=== PATIENT | female | born 1980 | race Caucasian/White ===

== ENCOUNTER 2017-02-05 20:39 | Emergency (ER) | payer MEDICAID ==
[~2017-02-05] VITALS: Ht 162.6 cm; Wt 88.0 kg
[~2017-02-05 20:39] MED LIST: DOCU-144 PO; IBUP800T25 PO; PNV1TABL43 PO
[2017-02-05 20:44] VITALS: Ht 162.6 cm; Wt 88.0 kg
[2017-02-05] MEDS ORDERED: SOD CHLORIDE 0.9% 500 ML IV STA (21:27)
[2017-02-05] MEDS ORDERED: ASPIRIN 325 MG TAB PO STA (21:27)
[2017-02-05] MEDS ORDERED: LABETALOL HCL 20MG INJ IV ONE (21:30)
--- NOTE | 2017-02-05 22:22 | RADRPT ---
PROCEDURE: XR Chest AP portable CLINICAL INDICATION: Chest pain TECHNIQUE: An AP portable radiograph of the chest was submitted. COMPARISON: None. FINDINGS: Support Hardware: None Cardiovascular: Although exaggerated by overly lordotic projection, the heart appears mildly enlarge d and the pulmonary vasculature is equivocal for pulmonary venous obstruction. Lung Pavon: The lung pavon appear clear with no nodule, alveolar infiltrate, or interstitial promi nence evident. Pleural Spaces: No pneumothorax or pleural effusion is identified. Osseous Structures: The osseous structures appear intact. Soft Tissues: The soft tissues appear generous. IMPRESSION: 1. Mild cardiomegaly exaggerated by over the lordotic projection. The pulmonary vasculature is equi vocal for point venous obstruction. 2. Otherwise, unremarkable portable chest. Physician Ry Date Time Electronically viewed and signed by Physician Ry on 02/05/2017 22:22 /
[2017-02-05] MEDS ORDERED: NORG1TAB81 PO (22:36)
[2017-02-06] MEDS ORDERED: AMLO-147 PO (01:21)
--- NOTE | 2017-02-06 01:27 | ERD ---
ER Documentation Chief Complaint Chief Complaint chest pain x 2 days, htn w/ eye pain today HPI This 28-year-old female presents with 2 days of substernal nonradiating chest pain described as a sharp pain. Also had some blurred vision bilaterally today. This never been diagnosed with hypertension but is very hypertensive in triage. She does not take any medications. Any history of cardiac issues. ROS All systems reviewed and are negative except as per history of present illness. Medications Home Meds Active Scripts Amlodipine Besylate* (Amlodipine Besylate*) 10 Mg Tablet, 10 MG PO DAILY, #30 TAB Prov:MAGDI KEARNEY DO 02/06/17 Reported Medications Norgestimate-Ethinyl Estradiol (Norg-Ee 0.18-0.215-0.25/0.025) 1 Each Tablet, 1 EACH PO DAILY, TAB 02/05/17 Discontinued Reported Medications Docusate Sodium* (Colace*) 100 Mg Capsule, 100 MG PO BID, #30 CAP 08/11/14 Ibuprofen* (Motrin*) 800 Mg Tab, 800 MG PO Q6 Y for PAIN, #30 TAB 08/11/14 Vit/Fe Fumarate/Fa* ( Vitamin Tablet*) 1 Tab Tablet, 1 TAB PO DAILY, TAB 08/09/14 Allergies Allergies: Coded Allergies: Penicillins (Verified Allergy, Mild, 02/05/17) PMhx/Soc History of Surgery: No Anesthesia Reaction: No Hx Neurological Disorder: No Hx Respiratory Disorders: No Hx Cardiac Disorders: Yes (HTN) Hx Psychiatric Problems: No Hx Miscellaneous Medical Probl: Yes (DM) Hx Alcohol Use: No Hx Substance Use: No Hx Tobacco Use: No Smoking Status: Never smoker Physical Exam Vitals Vital Signs Date Time Temp Pulse Resp B/P Pulse Ox O2 Delivery O2 Flow Rate FiO2 02/05/17 23:15 80 20 169/96 99 Room Air 02/05/17 20:44 98.3 80 20 209/98 96 Physical Exam Const: [] Mild distress Head: Atraumatic Eyes: Normal Conjunctiva, ophthalmoscope exam within normal limits ENT: Normal External Ears, Nose and Mouth. Neck: Full range of motion..~ No meningismus. Resp: Clear to auscultation bilaterally Cardio: Regular rate and rhythm, no murmurs Abd: Soft, non tender, non distended. Normal bowel sounds Skin: No petechiae or rashes Ext: No cyanosis, or edema Neur: Awake and alert oriented 3, no focal deficit Psych: Normal Mood and Affect Result Diagram: 02/05/17213902/05/172139 Results 24 hrs Laboratory Tests Test 02/05/17 21:17 02/05/17 21:24 02/05/17 21:40 Bedside Urine pH (LAB) 7.0 Bedside Urine Protein (LAB) Trace Bedside Urine Glucose (UA) Negative Bedside Urine Ketones (LAB) Trace Bedside Urine Blood Negative Bedside Urine Nitrite (LAB) Negative Bedside Urine Leukocyte Esterase (L Negative Bedside Glucose 100mg/dL White Blood Count 12.910^3/ul Red Blood Count 4.2910^6/ul Hemoglobin 12.4g/dl Hematocrit 37.4% Mean Corpuscular Volume 87.2fl Mean Corpuscular Hemoglobin 28.9pg Mean Corpuscular Hemoglobin Concent 33.2g/dl Red Cell Distribution Width 11.9% Platelet Count 22313^3/UL Mean Platelet Volume 9.7fl Neutrophils % 70.9% Lymphocytes % 23.3% Monocytes % 4.7% Eosinophils % 0.5% Basophils % 0.3% Nucleated Red Blood Cells % 0.0/100WBC Neutrophils # 9.110^3/ul Lymphocytes # 3.010^3/ul Monocytes # 0.610^3/ul Eosinophils # 0.110^3/ul Basophils # 0.010^3/ul Nucleated Red Blood Cells # 0.010^3/ul Sodium Level 142mmol/L Potassium Level 3.5mmol/L Chloride Level 103mmol/L Carbon Dioxide Level 28mmol/L Anion Gap 15 Blood Urea Nitrogen 10mg/dl Creatinine 0.68mg/dl Glucose Level 105mg/dl Calcium Level 9.0mg/dl Troponin I < 0.012ng/ml B-Type Natriuretic Peptide 51PG/ML Current Medications Medications (Trade) Dose Ordered Sig/Reza Route PRN Reason Start Time Stop Time Status Last Admin Dose Admin Sodium Chloride (NS) 500 ml @ 500 mls/hr Q1H STAT IV 02/05/17 21:27 02/05/17 22:26 DC 02/05/17 21:40 Aspirin (Aspirin) 325 mg ONCE STAT PO 02/05/17 21:27 02/05/17 21:30 DC 02/05/17 21:40 Labetalol HCl (Labetalol) 20 mg ONCE ONCE IV 02/05/17 21:30 02/05/17 21:31 DC 02/05/17 21:40 Procedures/MDM Hypertensive urgency with chest pain and blurred vision. Previously undiagnosed hypertension. She was given labetalol 20 mg which greatly reduce her blood pressure, resolved her headache completely or blurred vision. She is given aspirin. She also given normal saline. No signs of cardiac dysfunction. Also no signs of damage from long-standing hypertension such as renal dysfunction or cardiac dysfunction. I have low suspicion for subarachnoid hemorrhages patient's symptoms are resolved and she had no other neurological deficits. She is symptomatic will be discharged home. Primary care follow-up on Wednesday and I am discharging her with amlodipine tablets to prevent hypertension. Recommend an outpatient echocardiogram to patient and family. EKG interpretation: Normal sinus rhythm rate of 77, normal axis, no ST or T- wave changes concerning for acute ischemia, normal intervals. Normal EKG Rate monitor interpretation: Normal sinus rhythm arrhythmia Chest x-ray rotation: I see no acute process. I see no infiltrates, no palmar edema, pneumothorax, no fractures. Radiologist mentions a possibly pulmonary venous obstruction the patient has completely resolved symptoms. Care time 35 minutes: This includes treatment of hypertensive urgency with unstable vital signs using vasoactive medication labetalol, careful fluid administration, multiple visits patient's bedside to assess cardio dynamic and neuro status, review of chart, discussion with patient, this does not include billable procedures. Departure Diagnosis: Primary Impression: Blurred vision, bilateral Additional Impressions: Accelerated hypertension Chest pain Condition: Stable Patient Instructions: Blurred Vision, Chest Pain, Uncertain Cause, Hypertension , New (Begin Treatment) Referrals: [facility] YOU HAVE RECEIVED A MEDICAL SCREENING EXAM AND THE RESULTS INDICATE THAT YOU DO NOT HAVE A CONDITION THAT REQUIRES URGENT TREATMENT IN THE EMERGENCY DEPARTMENT. FURTHER EVALUATION AND TREATMENT OF YOUR CONDITION CAN WAIT UNTIL YOU ARE SEEN IN YOUR DOCTORS OFFICE WITHIN THE NEXT 1-2 DAYS. IT IS YOUR RESPONSIBILITY TO MAKE AN APPOINTMENT FOR FOLOW-UP CARE. IF YOU HAVE A PRIMARY DOCTOR --you should call your primary doctor and schedule an appointment IF YOU DO NOT HAVE A PRIMARY DOCTOR YOU CAN CALL OUR PHYSICIAN REFERRAL HOTLINE AT IF YOU CAN NOT AFFORD TO SEE A PHYSICIAN YOU CAN CHOSE FROM THE FOLLOWING [facility] [address] [facility]. [facility] [address] [facility] [facility] [address] [facility] [address] [facility] [address] [facility]. [facility] [address] Additional Instructions: Llame al doctor MAANA y ban marla JOSE F PARA DENTRO DE 2-3 [place].Dgale a la secretaria que nosotros le instruimos hacer esta jose f.Avise o llame si jasso condicin se empeora antes de la jose f. Regresa aqui si peor o no mejor. MAGDI KEARNEY DO Feb 06, 2017 01:27
--- NOTE | 2017-02-06 01:27 | ERD ---
ER Documentation Chief Complaint Chief Complaint chest pain x 2 days, htn w/ eye pain today HPI This 28-year-old female presents with 2 days of substernal nonradiating chest pain described as a sharp pain. Also had some blurred vision bilaterally today. This never been diagnosed with hypertension but is very hypertensive in triage. She does not take any medications. Any history of cardiac issues. ROS All systems reviewed and are negative except as per history of present illness. Medications Home Meds Active Scripts Amlodipine Besylate* (Amlodipine Besylate*) 10 Mg Tablet, 10 MG PO DAILY, #30 TAB Prov:MAGDI KEARNEY DO 02/06/17 Reported Medications Norgestimate-Ethinyl Estradiol (Norg-Ee 0.18-0.215-0.25/0.025) 1 Each Tablet, 1 EACH PO DAILY, TAB 02/05/17 Discontinued Reported Medications Docusate Sodium* (Colace*) 100 Mg Capsule, 100 MG PO BID, #30 CAP 08/11/14 Ibuprofen* (Motrin*) 800 Mg Tab, 800 MG PO Q6 Y for PAIN, #30 TAB 08/11/14 Vit/Fe Fumarate/Fa* ( Vitamin Tablet*) 1 Tab Tablet, 1 TAB PO DAILY, TAB 08/09/14 Allergies Allergies: Coded Allergies: Penicillins (Verified Allergy, Mild, 02/05/17) PMhx/Soc History of Surgery: No Anesthesia Reaction: No Hx Neurological Disorder: No Hx Respiratory Disorders: No Hx Cardiac Disorders: Yes (HTN) Hx Psychiatric Problems: No Hx Miscellaneous Medical Probl: Yes (DM) Hx Alcohol Use: No Hx Substance Use: No Hx Tobacco Use: No Smoking Status: Never smoker Physical Exam Vitals Vital Signs Date Time Temp Pulse Resp B/P Pulse Ox O2 Delivery O2 Flow Rate FiO2 02/05/17 23:15 80 20 169/96 99 Room Air 02/05/17 20:44 98.3 80 20 209/98 96 Physical Exam Const: [] Mild distress Head: Atraumatic Eyes: Normal Conjunctiva, ophthalmoscope exam within normal limits ENT: Normal External Ears, Nose and Mouth. Neck: Full range of motion..~ No meningismus. Resp: Clear to auscultation bilaterally Cardio: Regular rate and rhythm, no murmurs Abd: Soft, non tender, non distended. Normal bowel sounds Skin: No petechiae or rashes Ext: No cyanosis, or edema Neur: Awake and alert oriented 3, no focal deficit Psych: Normal Mood and Affect Result Diagram: 02/05/17213902/05/172139 Results 24 hrs Laboratory Tests Test 02/05/17 21:17 02/05/17 21:24 02/05/17 21:40 Bedside Urine pH (LAB) 7.0 Bedside Urine Protein (LAB) Trace Bedside Urine Glucose (UA) Negative Bedside Urine Ketones (LAB) Trace Bedside Urine Blood Negative Bedside Urine Nitrite (LAB) Negative Bedside Urine Leukocyte Esterase (L Negative Bedside Glucose 100mg/dL White Blood Count 12.910^3/ul Red Blood Count 4.2910^6/ul Hemoglobin 12.4g/dl Hematocrit 37.4% Mean Corpuscular Volume 87.2fl Mean Corpuscular Hemoglobin 28.9pg Mean Corpuscular Hemoglobin Concent 33.2g/dl Red Cell Distribution Width 11.9% Platelet Count 95235^3/UL Mean Platelet Volume 9.7fl Neutrophils % 70.9% Lymphocytes % 23.3% Monocytes % 4.7% Eosinophils % 0.5% Basophils % 0.3% Nucleated Red Blood Cells % 0.0/100WBC Neutrophils # 9.110^3/ul Lymphocytes # 3.010^3/ul Monocytes # 0.610^3/ul Eosinophils # 0.110^3/ul Basophils # 0.010^3/ul Nucleated Red Blood Cells # 0.010^3/ul Sodium Level 142mmol/L Potassium Level 3.5mmol/L Chloride Level 103mmol/L Carbon Dioxide Level 28mmol/L Anion Gap 15 Blood Urea Nitrogen 10mg/dl Creatinine 0.68mg/dl Glucose Level 105mg/dl Calcium Level 9.0mg/dl Troponin I < 0.012ng/ml B-Type Natriuretic Peptide 51PG/ML Current Medications Medications (Trade) Dose Ordered Sig/Reza Route PRN Reason Start Time Stop Time Status Last Admin Dose Admin Sodium Chloride (NS) 500 ml @ 500 mls/hr Q1H STAT IV 02/05/17 21:27 02/05/17 22:26 DC 02/05/17 21:40 Aspirin (Aspirin) 325 mg ONCE STAT PO 02/05/17 21:27 02/05/17 21:30 DC 02/05/17 21:40 Labetalol HCl (Labetalol) 20 mg ONCE ONCE IV 02/05/17 21:30 02/05/17 21:31 DC 02/05/17 21:40 Procedures/MDM Hypertensive urgency with chest pain and blurred vision. Previously undiagnosed hypertension. She was given labetalol 20 mg which greatly reduce her blood pressure, resolved her headache completely or blurred vision. She is given aspirin. She also given normal saline. No signs of cardiac dysfunction. Also no signs of damage from long-standing hypertension such as renal dysfunction or cardiac dysfunction. I have low suspicion for subarachnoid hemorrhages patient's symptoms are resolved and she had no other neurological deficits. She is symptomatic will be discharged home. Primary care follow-up on Wednesday and I am discharging her with amlodipine tablets to prevent hypertension. Recommend an outpatient echocardiogram to patient and family. EKG interpretation: Normal sinus rhythm rate of 77, normal axis, no ST or T- wave changes concerning for acute ischemia, normal intervals. Normal EKG Rate monitor interpretation: Normal sinus rhythm arrhythmia Chest x-ray rotation: I see no acute process. I see no infiltrates, no palmar edema, pneumothorax, no fractures. Radiologist mentions a possibly pulmonary venous obstruction the patient has completely resolved symptoms. Care time 35 minutes: This includes treatment of hypertensive urgency with unstable vital signs using vasoactive medication labetalol, careful fluid administration, multiple visits patient's bedside to assess cardio dynamic and neuro status, review of chart, discussion with patient, this does not include billable procedures. Departure Diagnosis: Primary Impression: Blurred vision, bilateral Additional Impressions: Accelerated hypertension Chest pain Condition: Stable Patient Instructions: Blurred Vision, Chest Pain, Uncertain Cause, Hypertension , New (Begin Treatment) Referrals: [facility] YOU HAVE RECEIVED A MEDICAL SCREENING EXAM AND THE RESULTS INDICATE THAT YOU DO NOT HAVE A CONDITION THAT REQUIRES URGENT TREATMENT IN THE EMERGENCY DEPARTMENT. FURTHER EVALUATION AND TREATMENT OF YOUR CONDITION CAN WAIT UNTIL YOU ARE SEEN IN YOUR DOCTORS OFFICE WITHIN THE NEXT 1-2 DAYS. IT IS YOUR RESPONSIBILITY TO MAKE AN APPOINTMENT FOR FOLOW-UP CARE. IF YOU HAVE A PRIMARY DOCTOR --you should call your primary doctor and schedule an appointment IF YOU DO NOT HAVE A PRIMARY DOCTOR YOU CAN CALL OUR PHYSICIAN REFERRAL HOTLINE AT IF YOU CAN NOT AFFORD TO SEE A PHYSICIAN YOU CAN CHOSE FROM THE FOLLOWING [facility] [address] [facility]. [facility] [address] [facility]. [facility] [address] [facility] [address] [facility] [address] [facility]. [facility] [address] Additional Instructions: Llame al doctor MAANA y ban marla JOSE F PARA DENTRO DE 2-3 [place].Dgale a la secretaria que nosotros le instruimos hacer esta jose f.Avise o llame si jasso condicin se empeora antes de la jose f. Regresa aqui si peor o no mejor. MAGDI KEARNEY DO Feb 06, 2017 01:27
--- NOTE | 2017-02-06 01:27 | ERD ---
ER Documentation Chief Complaint Chief Complaint chest pain x 2 days, htn w/ eye pain today HPI This 28-year-old female presents with 2 days of substernal nonradiating chest pain described as a sharp pain. Also had some blurred vision bilaterally today. This never been diagnosed with hypertension but is very hypertensive in triage. She does not take any medications. Any history of cardiac issues. ROS All systems reviewed and are negative except as per history of present illness. Medications Home Meds Active Scripts Amlodipine Besylate* (Amlodipine Besylate*) 10 Mg Tablet, 10 MG PO DAILY, #30 TAB Prov:MAGDI KEARNEY DO 02/06/17 Reported Medications Norgestimate-Ethinyl Estradiol (Norg-Ee 0.18-0.215-0.25/0.025) 1 Each Tablet, 1 EACH PO DAILY, TAB 02/05/17 Discontinued Reported Medications Docusate Sodium* (Colace*) 100 Mg Capsule, 100 MG PO BID, #30 CAP 08/11/14 Ibuprofen* (Motrin*) 800 Mg Tab, 800 MG PO Q6 Y for PAIN, #30 TAB 08/11/14 Vit/Fe Fumarate/Fa* ( Vitamin Tablet*) 1 Tab Tablet, 1 TAB PO DAILY, TAB 08/09/14 Allergies Allergies: Coded Allergies: Penicillins (Verified Allergy, Mild, 02/05/17) PMhx/Soc History of Surgery: No Anesthesia Reaction: No Hx Neurological Disorder: No Hx Respiratory Disorders: No Hx Cardiac Disorders: Yes (HTN) Hx Psychiatric Problems: No Hx Miscellaneous Medical Probl: Yes (DM) Hx Alcohol Use: No Hx Substance Use: No Hx Tobacco Use: No Smoking Status: Never smoker Physical Exam Vitals Vital Signs Date Time Temp Pulse Resp B/P Pulse Ox O2 Delivery O2 Flow Rate FiO2 02/05/17 23:15 80 20 169/96 99 Room Air 02/05/17 20:44 98.3 80 20 209/98 96 Physical Exam Const: [] Mild distress Head: Atraumatic Eyes: Normal Conjunctiva, ophthalmoscope exam within normal limits ENT: Normal External Ears, Nose and Mouth. Neck: Full range of motion..~ No meningismus. Resp: Clear to auscultation bilaterally Cardio: Regular rate and rhythm, no murmurs Abd: Soft, non tender, non distended. Normal bowel sounds Skin: No petechiae or rashes Ext: No cyanosis, or edema Neur: Awake and alert oriented 3, no focal deficit Psych: Normal Mood and Affect Result Diagram: 02/05/17213902/05/172139 Results 24 hrs Laboratory Tests Test 02/05/17 21:17 02/05/17 21:24 02/05/17 21:40 Bedside Urine pH (LAB) 7.0 Bedside Urine Protein (LAB) Trace Bedside Urine Glucose (UA) Negative Bedside Urine Ketones (LAB) Trace Bedside Urine Blood Negative Bedside Urine Nitrite (LAB) Negative Bedside Urine Leukocyte Esterase (L Negative Bedside Glucose 100mg/dL White Blood Count 12.910^3/ul Red Blood Count 4.2910^6/ul Hemoglobin 12.4g/dl Hematocrit 37.4% Mean Corpuscular Volume 87.2fl Mean Corpuscular Hemoglobin 28.9pg Mean Corpuscular Hemoglobin Concent 33.2g/dl Red Cell Distribution Width 11.9% Platelet Count 72283^3/UL Mean Platelet Volume 9.7fl Neutrophils % 70.9% Lymphocytes % 23.3% Monocytes % 4.7% Eosinophils % 0.5% Basophils % 0.3% Nucleated Red Blood Cells % 0.0/100WBC Neutrophils # 9.110^3/ul Lymphocytes # 3.010^3/ul Monocytes # 0.610^3/ul Eosinophils # 0.110^3/ul Basophils # 0.010^3/ul Nucleated Red Blood Cells # 0.010^3/ul Sodium Level 142mmol/L Potassium Level 3.5mmol/L Chloride Level 103mmol/L Carbon Dioxide Level 28mmol/L Anion Gap 15 Blood Urea Nitrogen 10mg/dl Creatinine 0.68mg/dl Glucose Level 105mg/dl Calcium Level 9.0mg/dl Troponin I < 0.012ng/ml B-Type Natriuretic Peptide 51PG/ML Current Medications Medications (Trade) Dose Ordered Sig/Reza Route PRN Reason Start Time Stop Time Status Last Admin Dose Admin Sodium Chloride (NS) 500 ml @ 500 mls/hr Q1H STAT IV 02/05/17 21:27 02/05/17 22:26 DC 02/05/17 21:40 Aspirin (Aspirin) 325 mg ONCE STAT PO 02/05/17 21:27 02/05/17 21:30 DC 02/05/17 21:40 Labetalol HCl (Labetalol) 20 mg ONCE ONCE IV 02/05/17 21:30 02/05/17 21:31 DC 02/05/17 21:40 Procedures/MDM Hypertensive urgency with chest pain and blurred vision. Previously undiagnosed hypertension. She was given labetalol 20 mg which greatly reduce her blood pressure, resolved her headache completely or blurred vision. She is given aspirin. She also given normal saline. No signs of cardiac dysfunction. Also no signs of damage from long-standing hypertension such as renal dysfunction or cardiac dysfunction. I have low suspicion for subarachnoid hemorrhages patient's symptoms are resolved and she had no other neurological deficits. She is symptomatic will be discharged home. Primary care follow-up on Wednesday and I am discharging her with amlodipine tablets to prevent hypertension. Recommend an outpatient echocardiogram to patient and family. EKG interpretation: Normal sinus rhythm rate of 77, normal axis, no ST or T- wave changes concerning for acute ischemia, normal intervals. Normal EKG Rate monitor interpretation: Normal sinus rhythm arrhythmia Chest x-ray rotation: I see no acute process. I see no infiltrates, no palmar edema, pneumothorax, no fractures. Radiologist mentions a possibly pulmonary venous obstruction the patient has completely resolved symptoms. Care time 35 minutes: This includes treatment of hypertensive urgency with unstable vital signs using vasoactive medication labetalol, careful fluid administration, multiple visits patient's bedside to assess cardio dynamic and neuro status, review of chart, discussion with patient, this does not include billable procedures. Departure Diagnosis: Primary Impression: Blurred vision, bilateral Additional Impressions: Accelerated hypertension Chest pain Condition: Stable Patient Instructions: Blurred Vision, Chest Pain, Uncertain Cause, Hypertension , New (Begin Treatment) Referrals: [facility] YOU HAVE RECEIVED A MEDICAL SCREENING EXAM AND THE RESULTS INDICATE THAT YOU DO NOT HAVE A CONDITION THAT REQUIRES URGENT TREATMENT IN THE EMERGENCY DEPARTMENT. FURTHER EVALUATION AND TREATMENT OF YOUR CONDITION CAN WAIT UNTIL YOU ARE SEEN IN YOUR DOCTORS OFFICE WITHIN THE NEXT 1-2 DAYS. IT IS YOUR RESPONSIBILITY TO MAKE AN APPOINTMENT FOR FOLOW-UP CARE. IF YOU HAVE A PRIMARY DOCTOR --you should call your primary doctor and schedule an appointment IF YOU DO NOT HAVE A PRIMARY DOCTOR YOU CAN CALL OUR PHYSICIAN REFERRAL HOTLINE AT IF YOU CAN NOT AFFORD TO SEE A PHYSICIAN YOU CAN CHOSE FROM THE FOLLOWING [facility] [address] [facility]. [facility] [address] [facility] [address] [facility] [address] [facility] [address] [facility]. [facility] [address] Additional Instructions: Llame al doctor MAANA y ban marla JOSE F PARA DENTRO DE 2-3 [place].Dgale a la secretaria que nosotros le instruimos hacer esta jose f.Avise o llame si jasso condicin se empeora antes de la jose f. Regresa aqui si peor o no mejor. MAGDI KEARNEY DO Feb 06, 2017 01:27
[2017-02-06 01:32] VITALS: BP 141/89; PULSE 74; RESP 18
== END 2017-02-06 01:33 | disposition home or self-care (01) ==
LOC: E/R 20:39
DX: H53.8 Other visual disturbances (principal); I10 Essential (primary) hypertension; E11.9 Type 2 diabetes mellitus without complications; R06.02 Shortness of breath
CPT/HCPCS: 36415; 71010; 80048; 81003; 82962; 83880; 84484; 85025; 93005; 96374; J7040; Z7502; Z7610